=== PATIENT | male | born 1995 | race Caucasian/White ===

== ENCOUNTER 2020-04-17 16:41 | Emergency (ER) | payer SELFPAY ==
[~2020-04-17] VITALS: Ht 177.8 cm; Wt 97.7 kg
[~2020-04-17 16:41] MED LIST: FISH OIL 1,0001 CA1 PO; MEDROL DOSE PACK4 MG PO; MULTI-DAY VITAM1 TAB
[2020-04-17 17:43] VITALS: BP 128/78; Ht 177.8 cm; Wt 97.7 kg
[2020-04-17] MEDS ORDERED: LIORESAL 10 MG10 MG PO (19:56)
[2020-04-17] MEDS ORDERED: DICLOFENAC SODI50 MG PO (19:56)
== END 2020-04-17 21:12 | disposition home or self-care (01) ==
LOC: D.ER 16:41
DX: S16.1XXA Strain of muscle, fascia and tendon at neck level, initial encounter (principal); S29.012A Strain of muscle and tendon of back wall of thorax, initial encounter; V89.2XXA Person injured in unspecified motor-vehicle accident, traffic, initial encounter; Y93.9 Activity, unspecified; Y92.9 Unspecified place or not applicable